=== PATIENT | male | born 1980 | race Two or more races ===

== ENCOUNTER 2020-03-18 22:47 | Emergency (ER) | payer SELFPAY ==
[~2020-03-18] VITALS: Ht 177.8 cm; Wt 106.0 kg
[2020-03-18] MEDS ORDERED: KETOROLAC 30 MG/1 ML ONE (23:38)
[2020-03-19] MEDS ORDERED: SODIUM CHLORIDE FLUSH 10ML SYR IVF ONE
[2020-03-19] MEDS ORDERED: SODIUM CHLORIDE 0.9% 1,000ML IVBOLUS ONE
[2020-03-19] MEDS ORDERED: KETOROLAC 30 MG/1 ML IVPush ONE
[2020-03-19 01:32] VITALS: BP 126/67
--- NOTE | 2020-03-19 01:33 | NUR ---
BREAK RN: PT RESTING IN ROOM. NO ACUTE DISTRESS NOTED. CALL LIGHT IN PLACE. WILL CONTINUE TO MONITOR.
--- NOTE | 2020-03-19 02:01 | NUR ---
BREAK RN: REPORT GIVEN TO TYLOR FELIPE
== END 2020-03-19 02:32 | disposition home or self-care (01) ==
LOC: ED 03-19 00:01
DX: U07.1 COVID-19 (principal); B34.9 Viral infection, unspecified; R00.0 Tachycardia, unspecified; R06.02 Shortness of breath
CPT/HCPCS: 71045; 87635; 93005; 96361; 96374; 99285; J1885; J7030